=== PATIENT | female | born 1980 | race Caucasian/White ===

== ENCOUNTER → 2017-07-25 | Outpatient (CLI) | payer OTHER ==
[2017-07-25 09:32] LABS: BETA HCG QUANT 5871 MIU/ML (0-5)
== END ==
LOC: CLAB 08:11
PROVIDERS: ATTEND Obstetrics & Gynecology
DX: Z34.90 Encounter for supervision of normal pregnancy, unspecified, unspecified trimester (principal)
CPT/HCPCS: 36415; 84144; 84702

== ENCOUNTER → 2017-08-08 | Outpatient (CLI) | payer OTHER | LOC: CLAB 08:20 | PROVIDERS: ATTEND Obstetrics & Gynecology | DX: O02.1 Missed abortion (principal) | CPT/HCPCS: 36415; 86850; 86900; 86901 ==

== ENCOUNTER → 2017-08-21 | Outpatient (CLI) | payer OTHER ==
[2017-08-21 09:03] LABS: BETA HCG QUANT 13 MIU/ML (0-5)
== END ==
LOC: CLAB 08:10
PROVIDERS: ATTEND Obstetrics & Gynecology
DX: O02.1 Missed abortion (principal)
CPT/HCPCS: 36415; 84702

== ENCOUNTER → 2017-11-20 | Outpatient (CLI) | payer OTHER ==
[2017-11-20 09:08] LABS: AUTOMATED NEUTROPHIL # 3.6 TH/MM3 (1.8-7.7); BASOPHIL % 0.4 % (0.0-2.0); EOSINOPHIL % 0.7 % (0.0-4.0); HEMATOCRIT 34.3 % (35.0-46.0); HEMOGLOBIN 12.1 GM/DL (11.6-15.3); LYMPH % 30.5 % (9.0-44.0); LYMPHOCYTE # 1.7 TH/MM3 (1.0-4.8); MEAN CELL VOLUME 85.2 FL (80.0-100.0); MEAN CORPUSCULAR HEMOGLOBIN 30.1 PG (27.0-34.0); MEAN CORPUSCULAR HGB CONC 35.3 % (32.0-36.0); MEAN PLATELET VOLUME 7.3 FL (7.0-11.0); MONO % 5.9 % (0.0-8.0); MONOCYTE # 0.3 TH/MM3 (0-0.9); NEUT % 62.5 % (16.0-70.0); PLATELET COUNT 267 TH/MM3 (150-450); RED BLOOD COUNT 4.02 MIL/MM3 (4.00-5.30); RED CELL DISTRIBUTION WIDTH 13.3 % (11.6-17.2); WHITE BLOOD COUNT 5.7 TH/MM3 (4.0-11.0)
[2017-11-20 09:28] LABS: AMORPHOUS SEDIMENT, URINE RARE; BACTERIA, URINE FEW /hpf; BILIRUBIN, URINE NEG (NEG); BLOOD, URINE NEG (NEG); GLUCOSE,URINE NEG (NEG); KETONE, URINE TRACE mg/dL (NEG); MUCUS URINE FEW /lpf (OCC); NITRITE,URINE NEG (NEG); PH, URINE 7.5 (5.0-8.5); SQUAMOUS EPITHELIAL CELL URINE 1 /hpf (0-5); URINE COLOR YELLOW (YELLW/STRAW); URINE LEUKOCYTE ESTERASE LARGE (NEG)
[2017-11-20 09:34] LABS: SICKLE CELL SCREEN NEG (NEG)
[2017-11-20 11:01] LABS: HEPATITIS B SURFACE ANTIGEN NEGATIVE (NEGATIVE); HEPATITIS C AB IgG NEGATIVE (NEGATIVE)
[2017-11-22 07:53] LABS: VARICELLA ZOSTER AB IGM 0.24 (NEGATIVE)
== END ==
LOC: CLAB 08:21
PROVIDERS: ATTEND Obstetrics & Gynecology
DX: O23.40 Unspecified infection of urinary tract in pregnancy, unspecified trimester (principal); B95.1 Streptococcus, group B, as the cause of diseases classified elsewhere
CPT/HCPCS: 36415; 80307; 81001; 84443; 85025; 85660; 86403; 86592; 86703; 86762; 86787; 86803; 86850; 86900; 86901; 87086; 87340

== ENCOUNTER 2018-01-01 12:10 | Emergency (ER) | payer OTHER ==
[~2018-01-01] VITALS: Ht 160 cm; Wt 54.0 kg
[2018-01-01 12:19] VITALS: BP 113/69; PULSE 104; RESP 18; TEMP 97.8; O2SAT 100
[2018-01-01] MEDS ORDERED: CETI-1 (12:28)
[2018-01-01] MEDS ORDERED: PULM1SOL NEB (12:28)
[2018-01-01] MEDS ORDERED: FLUT1INH INH (12:28)
[2018-01-01] MEDS ORDERED: MONT10TA2 PO (12:28)
[2018-01-01] MEDS ORDERED: SODIUM CHLORIDE 0.9% FLUSH 10 ML FLUSH IVF PRN (12:30)
[2018-01-01] MEDS ORDERED: SODIUM CHLOR 0.9% 1000 ML INJ 1,000 ML IV ONE (12:30)
[2018-01-01 12:34] VITALS: O2SAT 99
[2018-01-01 12:48] LABS: BASOPHIL % 0.2 % (0.0-2.0); EOSINOPHIL # 0.1 TH/MM3 (0-0.4); LYMPH % 8.3 % (9.0-44.0); LYMPHOCYTE # 0.8 TH/MM3 (1.0-4.8); MEAN CELL VOLUME 85.8 FL (80.0-100.0); MEAN CORPUSCULAR HEMOGLOBIN 29.7 PG (27.0-34.0); MEAN CORPUSCULAR HGB CONC 34.6 % (32.0-36.0); MEAN PLATELET VOLUME 7.3 FL (7.0-11.0); MONO % 5.8 % (0.0-8.0); MONOCYTE # 0.6 TH/MM3 (0-0.9); NEUT % 84.7 % (16.0-70.0); PLATELET COUNT 174 TH/MM3 (150-450); RED BLOOD COUNT 3.03 MIL/MM3 (4.00-5.30); RED CELL DISTRIBUTION WIDTH 13.7 % (11.6-17.2); WHITE BLOOD COUNT 9.5 TH/MM3 (4.0-11.0)
[2018-01-01 13:00] LABS: PROTHROMBIN TIME - PATIENT 9.7 SEC (9.8-11.6)
[2018-01-01 13:11] LABS: BICARBONATE 19.7 MEQ/L (21.0-32.0); CALCIUM 7.2 MG/DL (8.5-10.1); CREATININE 0.94 MG/DL (0.50-1.00); MAGNESIUM 1.4 MG/DL (1.5-2.5)
[2018-01-01 13:27] LABS: CALCIUM-PROTEIN CORRECTED 7.8 MG/DL (8.5-10.1); TROPONIN I 0.02 NG/ML (0.02-0.05)
--- NOTE | 2018-01-01 13:28 | PD ---
HPI Chief Complaint: Cardiac Complaint Time Seen by Provider: 12:25 Travel History International Travel<30 days: No Contact w/Intl Traveler<30days: No Traveled to known affect area: No History of Present Illness HPI 37-year-old female was brought to the emergency room by EMS after she started having significant palpitations are getting vancomycin infusion. Patient has history of cystic fibrosis and was admitted in [facility] at [place]. She was recently discharged and was sent home on vancomycin via PICC line. Patient says that for her cystic fibrosis usually does not get vancomycin and this was new. She did have few doses of it prior to one today where she started getting this reaction. When EMS arrived they noticed that her heart rate was in 170s and the cardiac rehabilitation specialist showed SVT. Patient was given 6 mg of adenosine that brought the heart rate down to 1 teens. Patient denies of any chest pain. Her wic site coordinator is from [place] and her carpenter/labor is Dr. Mtz. No history of vaginal bleeding or cramps. Patient says that when she was admitted at [facility] she was seen by an ID specialist as well as a wic site coordinator there that was part of her wic site coordinator group. When patient was admitted in the hospital there she had 2 episodes of rapid heartbeat that was questioned to be V. tach and patient was seen by the brass wind instrument maker there. As per the patient the brass wind instrument maker ruled out V. tach. Patient is 14 weeks and she is A1 PFSH Past Medical History Narrative Medical List of her past medical, surgical, social and family history is reviewed from the nursing note. Medical other: Yes (CYSTIC FIBROSIS ) ?: LMP: 09/24/17 Past Surgical History Surgical History: No Previous Surgery Other Surgery: Yes (3 SINUS SURGERIES ) Social History Alcohol Use: No Tobacco Use: No Substance Use: No Allergies-Medications (Allergen,Severity, Reaction): Coded Allergies: No Known Allergies (Verified Allergy, Unknown, 01/01/18) Comments No known drug allergies. Reported Meds & Prescriptions Reported Meds & Active Scripts Active Reported Pulmozyme Neb (Dornase Aidan) 1 Mg/Ml Amp 2.5 Mg NEB DAILY Breo Ellipta Inh (Fluticasone/Vilanterol) 100-25 Mcg/Act Inh 1 Puff INH DAILY Use daily at the same time. Singulair (Montelukast Sodium) 10 Mg Tab 10 Mg PO HS Zyrtec (Cetirizine HCl) 10 Mg Tablet Narrative Medication List of her home medications reviewed from the nursing note. Review of Systems Except as stated in HPI: all other systems reviewed are Neg Cardiovascular: Positive: Palpitations Physical Exam Narrative GENERAL: Awake, alert, anxious SKIN: Focused skin assessment warm/dry. Pale HEAD: Atraumatic. Normocephalic. EYES: Pupils equal and round. No scleral icterus. No injection or drainage. ENT: No nasal bleeding or discharge. Mucous membranes pink and moist. NECK: Trachea midline. No JVD. CARDIOVASCULAR: Regular rate and rhythm. Tachycardia. No murmur appreciated. RESPIRATORY: No accessory muscle use. Clear to auscultation. Breath sounds equal bilaterally. GASTROINTESTINAL: Abdomen soft, non-tender, nondistended. Hepatic and splenic margins not palpable. MUSCULOSKELETAL: No obvious deformities. No clubbing. No cyanosis. No edema. NEUROLOGICAL: Awake and alert. No obvious cranial nerve deficits. Motor grossly within normal limits. Normal speech. PSYCHIATRIC: Appropriate mood and affect; insight and judgment normal. Data Data Last Documented VS Vital Signs Date Time Temp Pulse Resp B/P (MAP) Pulse Ox O2 Delivery O2 Flow Rate FiO2 01/01/18 12:34 99 Room Air 01/01/18 12:19 97.8 104 18 113/69 (84) Orders Orders Electrocardiogram (01/01/18 12:25) Basic Metabolic Panel (Bmp) (01/01/18 12:25) Ckmb (Isoenzyme) Profile (01/01/18 12:25) Complete Blood Count With Diff (01/01/18 12:25) Magnesium (Mg) (01/01/18 12:25) Prothrombin Time / Inr (Pt) (01/01/18 12:25) Troponin I (01/01/18 12:25) Ecg Monitoring (01/01/18 12:25) Bilateral Bp Monitoring (01/01/18 12:25) Iv Access Insert/Monitor (01/01/18 12:25) Oximetry (01/01/18 12:25) Oxygen Administration (01/01/18 12:25) Sodium Chloride 0.9% Flush (Ns Flush) (01/01/18 12:30) Sodium Chlor 0.9% 1000 Ml Inj (Ns 1000 M (01/01/18 12:30) Thyroid Stimulating Hormone (01/01/18 12:25) Type And Screen (01/01/18 12:54) Protein Corrected Calcium(Pcc) (01/01/18 12:36) Potassium Chloride (Kcl) (01/01/18 13:45) Calcium Gluconate Inj (Calcium Gluconate (01/01/18 13:45) Labs Laboratory Tests Test 01/01/18 12:36 White Blood Count 9.5 TH/MM3 Red Blood Count 3.03 MIL/MM3 Hemoglobin 9.0 GM/DL Hematocrit 26.0 % Mean Corpuscular Volume 85.8 FL Mean Corpuscular Hemoglobin 29.7 PG Mean Corpuscular Hemoglobin Concent 34.6 % Red Cell Distribution Width 13.7 % Platelet Count 174 TH/MM3 Mean Platelet Volume 7.3 FL Neutrophils (%) (Auto) 84.7 % Lymphocytes (%) (Auto) 8.3 % Monocytes (%) (Auto) 5.8 % Eosinophils (%) (Auto) 1.0 % Basophils (%) (Auto) 0.2 % Neutrophils # (Auto) 8.0 TH/MM3 Lymphocytes # (Auto) 0.8 TH/MM3 Monocytes # (Auto) 0.6 TH/MM3 Eosinophils # (Auto) 0.1 TH/MM3 Basophils # (Auto) 0.0 TH/MM3 CBC Comment DIFF FINAL Differential Comment Prothrombin Time 9.7 SEC Prothromb Time International Ratio 1.0 RATIO Blood Urea Nitrogen 9 MG/DL Creatinine 0.94 MG/DL Random Glucose 98 MG/DL Total Protein 6.0 GM/DL Calcium Level 7.2 MG/DL Magnesium Level 1.4 MG/DL Sodium Level 140 MEQ/L Potassium Level 3.1 MEQ/L Chloride Level 112 MEQ/L Carbon Dioxide Level 19.7 MEQ/L Anion Gap 8 MEQ/L Estimat Glomerular Filtration Rate 68 ML/MIN Protein Corrected Calcium 7.8 MG/DL Total Creatine Kinase 33 U/L Troponin I 0.02 NG/ML Thyroid Stimulating Hormone 3rd Gen 2.560 uIU/ML MDM Medical Decision Making Medical Screen Exam Complete: Yes Emergency Medical Condition: Yes Medical Record Reviewed: Yes Interpretation(s) Twelve-lead EKG was reviewed by me. Normal sinus rhythm, normal axis, nonspecific ST-T wave changes, tachycardia. Heart rate of 105 bpm. Differential Diagnosis SVT, electrolyte abnormality, infection Narrative Course 2:26 PM blood test results are back. Patient has normal white blood cell count but hemoglobin and hematocrit is low especially when compared to her last hemoglobin and hematocrit from one month ago. Chemistry is suggestive of hypokalemia and hypocalcemia. Patient was given 1 L of IV fluid bolus. I have ordered for potassium and calcium replacement. I discussed about this anemia with the patient and she said that when she was in [place] she was told that she was anemic as well. Patient denies any blood loss from anywhere. Her last OB visit was one month ago. I have tried to get records faxed over from [facility] at [place] but have been unsuccessful so far. I have put a call out for patient's pulmonology from the [facility] pulmonology group and waiting to hear back from them they can discuss a the blood test results and also the reason patient has to be an ankle myosin and says since she had a reaction the alternative to it. I have updated the patient and her mother regarding these findings and the next step. If I do not hear back from the pulmonologists I might have to admit this patient at this point. 2:47 PM I let the patient know that we have not had much success in acquiring her labs and discharge summary from [place] or speak with her wic site coordinator. My concern at this point is that she is supposed to be on 9 more days of vancomycin which as per the patient is because her sputum grew MRSA and says she started having the palpitations with it. With her I' m not comfortable discharging her and having her continue vancomycin. I would have to end up keeping her at least for observation. Hopefully the admitting team would have better luck getting these faxed paperwork from [place]. The other option is to continue giving her the vancomycin in a controlled setting in the hospital and see if she has PSVT once again. 3:43 PM I received a phone call from Dr. Stone who is an associate of Dr. Mas from the same pulmonology group. He told me that Dr. Mas was on vacation and he is covering him. In fact he took care of this patient when she was hospitalized at [place]. He knows the patient's case well. After listening to the history he wanted the patient to be transferred to [facility] since they specialize in taking care of cystic fibrosis patient. At this point the admission was canceled with the residents here. Arrangements for transfer was being made. The transfer center of her hospital informed us that the pulmonologists spoke with the hospitalist Dr. Almaguer and I did not have to talk to him. Dr. Almaguer will be the accepting physician. I have informed of all this to the patient. Awaiting for a bed assignment at the [facility] and ambulance to take the patient over there. Procedures EKG Prior to Arrival: No Physician Communication Physician Communication Dr. Stone Diagnosis Primary Impression: SVT (supraventricular tachycardia) Additional Impressions: possible allergic reaction Hypokalemia Hypocalcemia Anemia Qualified Codes: D64.9 - Anemia, unspecified Disposition: 70 TRANSFER TO OTHER FACILITY Kyler Hannah MD Jan 01, 2018 13:28
[2018-01-01] MEDS ORDERED: POTASSIUM CHLORIDE 20 MEQ CONTROLLED RELEASE TAB PO ONE (13:45)
[2018-01-01] MEDS ORDERED: CALCIUM GLUCONATE INJ 1 GM in DEXTROSE 5% IN WATER 100ML INJ 100 ML IV ONE ×2 (13:45)
[2018-01-01 15:44] VITALS: BP 127/68; PULSE 110; RESP 18; O2SAT 99
[2018-01-01] MEDS ORDERED: MAGNESIUM SULFATE 1 GM PREMIX 100 ML IV ONE (19:30)
--- NOTE | 2018-01-02 12:18 | EKG ---
Date Performed: 01/01/2018 Time Performed: 12:22:51 PTAGE: 37 years EKG: SINUS TACHYCARDIA ABNORMAL RHYTHM ECG NO PREVIOUS TRACING DOCTOR: Diomedes Verdin Interpretating Date/Time 01/02/2018 12:16:01
== END 2018-01-01 19:49 | disposition short-term general hospital (02) ==
LOC: NEPC 12:10 → NEDA 14:47 → UNDOADMOB 14:47 → NEPC 19:49
DX: O99.412 Diseases of the circulatory system complicating pregnancy, second trimester (principal); I47.1 Supraventricular tachycardia; O99.282 Endocrine, nutritional and metabolic diseases complicating pregnancy, second trimester; E87.6 Hypokalemia; E83.51 Hypocalcemia; E84.9 Cystic fibrosis, unspecified; O99.012 Anemia complicating pregnancy, second trimester; D64.9 Anemia, unspecified; Z3A.14 14 weeks gestation of pregnancy
CPT/HCPCS: 80048; 82550; 83735; 84155; 84443; 84484; 85025; 85610; 86850; 86900; 86901; 93005; 96361; 96374; 99285; J0610; J7030

== ENCOUNTER → 2018-01-29 | Outpatient (CLI) | payer OTHER ==
[~2018-01-29] MED LIST: CETI-1; FLUT1INH INH; MONT10TA2 PO; PULM1SOL NEB
== END ==
LOC: HPND 08:32
PROVIDERS: ATTEND Obstetrics & Gynecology
DX: O09.522 Supervision of elderly multigravida, second trimester (principal); O30.042 Twin pregnancy, dichorionic/diamniotic, second trimester; O99.89 Other specified diseases and conditions complicating pregnancy, childbirth and the puerperium
CPT/HCPCS: 76811; 76812; 76817

== ENCOUNTER → 2018-02-12 | Outpatient (CLI) | payer OTHER | LOC: HPND 11:03 | PROVIDERS: ATTEND Obstetrics & Gynecology | DX: O09.522 Supervision of elderly multigravida, second trimester (principal); O26.892 Other specified pregnancy related conditions, second trimester; O30.042 Twin pregnancy, dichorionic/diamniotic, second trimester | CPT/HCPCS: 76815; 76817 ==

== ENCOUNTER → 2018-02-17 | Outpatient (CLI) | payer OTHER ==
[2018-02-17 11:55] LABS: AUTOMATED NEUTROPHIL # 6.6 TH/MM3 (1.8-7.7); BASOPHIL % 0.3 % (0.0-2.0); EOSINOPHIL # 0.1 TH/MM3 (0-0.4); EOSINOPHIL % 1.3 % (0.0-4.0); HEMATOCRIT 30.1 % (35.0-46.0); HEMOGLOBIN 10.3 GM/DL (11.6-15.3); LYMPH % 18.2 % (9.0-44.0); LYMPHOCYTE # 1.6 TH/MM3 (1.0-4.8); MEAN CELL VOLUME 90.5 FL (80.0-100.0); MEAN CORPUSCULAR HGB CONC 34.2 % (32.0-36.0); MEAN PLATELET VOLUME 7.3 FL (7.0-11.0); MONO % 5.6 % (0.0-8.0); MONOCYTE # 0.5 TH/MM3 (0-0.9); NEUT % 74.6 % (16.0-70.0); PLATELET COUNT 223 TH/MM3 (150-450); RED BLOOD COUNT 3.32 MIL/MM3 (4.00-5.30); RED CELL DISTRIBUTION WIDTH 15.4 % (11.6-17.2); WHITE BLOOD COUNT 8.9 TH/MM3 (4.0-11.0)
[2018-02-17 12:35] LABS: ALBUMIN 2.9 GM/DL (3.4-5.0); AST (GOT) 13 U/L (15-37); BICARBONATE 24.2 MEQ/L (21.0-32.0); BLOOD UREA NITROGEN 8 MG/DL (7-18); CALCIUM 9.1 MG/DL (8.5-10.1); CHLORIDE 108 MEQ/L (98-107); CREATININE 0.75 MG/DL (0.50-1.00); GLOMERULAR FILTRATION RATE 88 ML/MIN (>89); GLUCOSE,RANDOM 74 MG/DL (74-106); SODIUM (NA) 140 MEQ/L (136-145)
[2018-02-17 12:36] LABS: ALT (GPT) 15 U/L (10-53)
[2018-02-17 12:38] LABS: ALKALINE PHOSPHATASE 52 U/L (45-117); TOTAL BILIRUBIN ADULT 0.2 MG/DL (0.2-1.0); TOTAL PROTEIN 6.9 GM/DL (6.4-8.2)
== END ==
LOC: ELAB 10:30
DX: O25.10 Malnutrition in pregnancy, unspecified trimester (principal); E84.9 Cystic fibrosis, unspecified
CPT/HCPCS: 36415; 80053; 85025

== ENCOUNTER → 2018-02-26 | Outpatient (CLI) | payer OTHER | LOC: HPND 11:20 | PROVIDERS: ATTEND Obstetrics & Gynecology | DX: O09.522 Supervision of elderly multigravida, second trimester (principal); O30.042 Twin pregnancy, dichorionic/diamniotic, second trimester; O34.32 Maternal care for cervical incompetence, second trimester; O34.42 Maternal care for other abnormalities of cervix, second trimester; O26.872 Cervical shortening, second trimester | CPT/HCPCS: 76816; 76817 ==

== ENCOUNTER → 2018-03-12 | Outpatient (CLI) | payer OTHER | LOC: CLAB 07:25 | PROVIDERS: ATTEND Obstetrics & Gynecology | DX: Z34.90 Encounter for supervision of normal pregnancy, unspecified, unspecified trimester (principal) | CPT/HCPCS: 36415; 82951 ==

== ENCOUNTER → 2018-03-19 | Outpatient (CLI) | payer OTHER | LOC: HPND 08:59 | PROVIDERS: ATTEND Obstetrics & Gynecology | DX: O09.522 Supervision of elderly multigravida, second trimester (principal); O30.042 Twin pregnancy, dichorionic/diamniotic, second trimester; O34.42 Maternal care for other abnormalities of cervix, second trimester | CPT/HCPCS: 76816 ==

== ENCOUNTER → 2018-03-26 | Outpatient (CLI) | payer OTHER ==
[2018-03-26 08:24] LABS: HEMATOCRIT 32.1 % (35.0-46.0); HEMOGLOBIN 10.8 GM/DL (11.6-15.3)
== END ==
LOC: CLAB 07:58
PROVIDERS: ATTEND Obstetrics & Gynecology
DX: Z34.90 Encounter for supervision of normal pregnancy, unspecified, unspecified trimester (principal)
CPT/HCPCS: 36415; 80307; 82951; 82952; 85014; 85018; 87340; 87389; G0475

== ENCOUNTER 2018-06-04 06:50 | Inpatient (IN) ==
[2018-06-04 07:28] LABS: Baso # (Auto) 0.1 th/mm3 (0.0-0.2); Baso % (Auto) 0.5 % (0.0-2.0); Eos # (Auto) 0.2 th/mm3 (0.0-0.4); Eos % (Auto) 1.7 % (0.0-4.0); Hematocrit 39.3 % (35.0-46.0); Hemoglobin 13.4 gm/dL (11.6-15.3); Lymph # (Auto) 3.6 th/mm3 (1.0-4.8); Lymph % (Auto) 27.1 % (9.0-44.0); Mean Corpuscular Hemoglobin 31.1 pg (27.0-34.0); Mean Corpuscular Volume 91.4 fL (80.0-100.0); Mean Platelet Volume 8.5 fL (7.0-11.0); Mono # (Auto) 0.8 th/mm3 (0.0-0.9); Mono % (Auto) 6.1 % (0.0-8.0); Neut # (Auto) 8.6 th/mm3 (1.8-7.7); Neut % (Auto) 64.6 % (16.0-70.0); Platelet Count 202 th/mm3 (150-450); Red Cell Distribution Width 13.6 % (11.6-17.2); White Blood Count 13.4 th/mm3 (4.0-11.0)
[2018-06-04 08:00] LABS: Eosinophils 2 % (0-4); Lymphocytes 29 % (9-44); Metamyelocytes 2 % (0-1); Monocytes 2 % (0-8); Platelet Estimate Normal (Normal); Platelet Morphology Normal (Normal); RBC Morphology Normal (Normal)
[2018-06-04 08:01] LABS: Amphetamine Screen,Urine Neg (Neg); Barbiturate Screen,Urine Neg (Neg); Cannabinoid Screen,Urine Neg (Neg); Cocaine Screen,Urine Neg (Neg)
[2018-06-04 08:05] LABS: Bacteria,Urine Rare /hpf; Bilirubin,Urine Negative (Negative); Clarity,Urine Cloudy (Clear); Color,Urine Yellow (Yellw/Straw); Glucose,Urine (UA) Negative (Negative); Leukocyte Esterase,Urine Moderate (Negative); Mucus,Urine Few /lpf (Occasional); Nitrite,Urine Negative (Negative); Specific Gravity,Urine 1.014 (1.002-1.035); Squamous Epithelial Cell,Urine 20 /hpf (0-5)
[2018-06-04 08:07] LABS: Opiate Screen,Urine Neg (Neg)
[2018-06-04] MEDS ORDERED: Citric Acid/Sodium Citrate Liq 30 ML UDC PO SCH (08:15)
[2018-06-04] MEDS ORDERED: Morphine Sulfate PF Inj 5 MG/10 ML Ampul ONE (08:17)
[2018-06-04] MEDS ORDERED: ceFAZolin 2 GM Premix Inj 2 GM/100 ML BAG IV.SIG SCH (09:00)
[2018-06-04] MEDS ORDERED: ceFAZolin Inj 2,000 MG in Sodium Chlor 0.9% Inj 100 ML IV.SIG SCH (09:00)
[2018-06-04] MEDS ORDERED: Oxytocin 30 Units/500ml Premix 30 UNITS/500 ML BAG IV.SIG ONE (11:59)
--- NOTE | 2018-06-04 11:59 | P.OBDELI ---
Procedure Note Performed by: Yemi Mtz MD Procedure: Primary Low Transverse Section (Di-Di twins with IUGR 36 6/ 7 weeks) Indication for Delivery: Other (IUGR) Informed Consent Obtained: For anesthesia, For procedure Confirmed Correct: Patient, Procedure, Site, Time-out taken Anesthesia: Spinal Medication Prior to Procedure: As documented in eMAR Monitoring During Procedure: Blood pressure monitoring, court recording monitor, doppler, Pulse oximetry Urinary Catheter: Inserted using sterile technique, To dependent drainage Sterile Preparation: Duraprep, In usual fashion Position: Supine with wedge to right side, Supine with safety belt applied - Operative Features Skin Incision: Pfannenstiel Uterine Incision: Low transverse w/knife / scissors Membranes Ruptured: Artificially, Appearance of fluid (clear for A and B) Presentation: Occiput anterior (Twin B), Breech (twin a) Status of : Viable, Cord blood, Umbilical cord, Nursery present Placenta Delivered: Intact, Sent to pathology Medications: Antibiotics, Oxytocin Estimated blood loss (mL): 700 Procedure Tolerated: Well Maternal Condition: Stable Baby Complications: Other (baby b low weight, 1960 gm) Baby Condition: Stable Female A Delivery Date: 06/04/18 Weight: 2330 kg score (1 min): 8 score (5 min): 9 Female B Delivery Date: 06/04/18 Weight: 1960 kg score (1 min): 9 score (5 min): 9
--- NOTE | 2018-06-04 12:55 | MP ---
cc: Yemi Mtz MD DATE OF OPERATION: 06/04/2018 PREOPERATIVE DIAGNOSES: 1. Twin intrauterine gestation, di/di placentation with intrauterine growth restriction of both twin A and B. 2. Maternal history of cystic fibrosis. 3. Breech presentation of twin A. PROCEDURE PERFORMED: Primary low transverse section delivery of twin females. POSTOPERATIVE DIAGNOSES: 1. Twin intrauterine gestation, di/di placentation with intrauterine growth restriction of both twin A and B. 2. Maternal history of cystic fibrosis. 3. Breech presentation of twin A. SURGEON: Yemi Mtz MD. ANESTHESIA: Spinal. ESTIMATED BLOOD LOSS: 700 mL. DRAINS: Lee to gravity. OPERATIVE FINDINGS: Twin A delivered by breech extraction with Apgars of 8 at 1 minute and 9 at 5. Baby weighed 2330 kilograms. Baby B was vertex. Apgars were 9 at 1 minute and 9 at 5. Baby weighed 1960 kilograms. Clear fluid noted for both. Both placentas were intact and sent for pathologic review. INDICATIONS FOR PROCEDURE: The patient with chronic history of cystic fibrosis and during the course intrauterine growth restriction was identified with both twins. Baby A was larger, baby B was significantly smaller, falling below the third percentile. Baby A was approximately the fourth percentile for growth. PROCEDURE DESCRIPTION: The patient received Ancef 2 grams. She underwent spinal anesthetic with good results. She had a Lee inserted by sterile technique and she had sequentials placed on the lower extremities for VTE prophylaxis. She was prepped and draped. Timeout was conducted, agreed with all present in the room. The patient had excellent pain control. Pfannenstiel incision was utilized. The NICU staff was present. The incision was carried through the skin down through the subcutaneous layers identifying the fascia and then scoring it laterally, dissecting it away from the rectus muscle, the rectus muscle in the midline, opening the peritoneum sharply, and then placing a bladder blade over the pubic symphysis. Transverse incision was made in the lower uterine segment. Clear fluid was noted for twin A. Twin A was extracted by breech extraction. Baby was delivered without complication. Good tone and cry were noted. Cord was clamped with a curved Dottie and then the baby was passed off the operative field to the NICU staff. Delayed cord clamping was approximately 20 seconds. Baby B was palpated. The vertex was brought down into the lower uterine segment. The amniotic sac was opened sharply with clear fluid and then the was delivered in vertex left occiput posterior position. Good tone and cry were noted. Delayed cord clamping was documented for 46 seconds and the cord was clamped with straight Bisi clamp. The infant was taken to isolette with good tone and cry. Cord samples obtained appropriately for A and B and then the placenta was removed intact and sent to pathology for review. The uterus was explored. No retained tissue. The uterus was then closed with a double layer, first was running locking suture of 0 Monocryl, followed by a second imbricating suture of 0 Monocryl. Integrity incision was tested. There was good hemostasis. No hematoma. All free blood and clot was removed after irrigating the pelvis with copious normal saline. Confirmation of hemostasis again was documented before closure of the perineum. Full count was correct. Muscle belly was reapproximated loosely with interrupted mattress suture of 2-0 Monocryl. The fascia was then closed with 0 Vicryl in a simple running fashion and then the fat subcutaneous layer was closed with a running suture of 2-0 Monocryl. The skin was closed with a subcuticular stitch of #1 Stratafix with good result. Steri-Strips were applied and a dressing was applied over the incision. Final count was correct. The patient was stable. Twin A was in the regular nursery and twin B was sent to the NICU per protocol, below 2000 kilograms. At the completion of the case, the patient was stable. She was taken to the recovery room in room air. Yemi Mtz MD SJJose Antonio/ts , 12:10 PM , 12:20 PM
[2018-06-04] MEDS ORDERED: Naloxone Inj 0.4 MG/ML Vial IV.PUSH PRN (13:54)
[2018-06-04] MEDS ORDERED: Phenylephrine/NS 1000 MCG/10ML Syringe IV.PUSH ONE (14:49)
[2018-06-04] MEDS ORDERED: Oxytocin 30 Units/500ml Premix 30 UNITS/500 ML BAG IV.SIG PRN (16:59)
[2018-06-05 07:50] LABS: Hematocrit 38.3 % (35.0-46.0); Mean Corpuscular HGB Conc 33.9 % (32.0-36.0); Mean Corpuscular Volume 91.6 fL (80.0-100.0); Mean Platelet Volume 8.2 fL (7.0-11.0); Platelet Count 242 th/mm3 (150-450); Red Blood Count 4.18 mil/mm3 (4.00-5.30); Red Cell Distribution Width 13.9 % (11.6-17.2); White Blood Count 21.4 th/mm3 (4.0-11.0)
[2018-06-05] MEDS ORDERED: Zolpidem Tartrate 5 MG Tablet PO PRN (08:10)
[2018-06-05] MEDS ORDERED: Bisacodyl 10 MG Supp RECTAL PRN (08:10)
[2018-06-05] MEDS ORDERED: Naloxone Inj 0.4 MG/ML Vial IV.PUSH PRN (08:10)
[2018-06-05] MEDS ORDERED: Witch Hazel 50%/Glyderin 12.5% 40 Pad Jar RECTAL PRN (08:10)
[2018-06-05] MEDS ORDERED: Acetaminophen 325 MG Tablet PO PRN (08:10)
--- NOTE | 2018-06-05 08:10 | P.PNOB ---
Subjective Post op day: 1 Interval history: Doing well, pain controlled, ambulating without difficulty, voiding spontaneously, tolerating a regular diet Objective Vital Signs/I&O: Vital Signs 06/04/18 11:55 06/04/18 12:04 06/04/18 12:15 Temperature 98.0 F Pulse Rate 70 69 Respiratory Rate 17 18 Blood Pressure 112/57 L 100/60 114/62 06/04/18 12:22 06/04/18 12:30 06/04/18 12:31 Temperature Pulse Rate 68 107 H Respiratory Rate 17 20 Blood Pressure 109/63 06/04/18 12:51 06/04/18 12:54 06/04/18 13:31 Temperature 97.8 F 97.9 F Pulse Rate 60 64 Respiratory Rate 15 16 Blood Pressure 103/66 103/72 06/04/18 19:55 06/04/18 21:56 06/05/18 00:00 Temperature 98.3 F 98.6 F Pulse Rate 74 70 Respiratory Rate 16 18 18 Blood Pressure 105/68 104/61 06/05/18 04:00 Temperature 98.6 F Pulse Rate 70 Respiratory Rate 18 Blood Pressure 104/61 Intake & Output 06/04/18 06/05/18 06/05/18 18:59 06:59 18:59 Intake Total 100 / 100 Balance 100 / 100 Weight 71.668 kg Intake: IV 100 / 100 Ofirmev Inj 1,000 mg In 100 ml 100 / 100 @ 400 mls/hr IV.SIG Q8H [facility] Rx# :[id number] Result Diagrams: 06/05/18 07:37 Objective Remarks: GENERAL: Well-nourished, well-developed patient. CARDIOVASCULAR: Regular rate and rhythm without murmurs, gallops, or rubs. RESPIRATORY: Breath sounds equal bilaterally. No accessory muscle use. ABDOMEN/GI: Abdomen soft, non-tender, bowel sounds present. Dressing clean, dry and intact. Fundus: Firm, non-tender at umbilicus. GENITOURINARY: Light to moderate bleeding. EXTREMITIES: No cyanosis or edema, non-tender, without signs of DVT. Medications and IVs: Active Medications Citric Acid/Sodium Citrate (Sodium Citrate/Citric Acid Liq) 30 ml PO TOOL PROGRAMMER [facility] Stop: 06/08/18 08:14 Diphenhydramine HCl (Benadryl) 50 mg PO Q6H PRN PRN Reason: MILD TO MODERATE ITCHING Stop: 06/05/18 13:53 Diphenhydramine HCl (Benadryl Inj) 25 mg IV.PUSH Q6H PRN PRN Reason: MILD TO MODERATE ITCHING Stop: 06/05/18 13:53 Diphtheria/Pertussis/Tetanus Vacc (Boostrix Vaccine Inj) 0.5 ml IM .ONCE ONE Stop: 06/05/18 16:01 Lactated Ringer's (Lr 1000 Ml Inj) 1,000 mls @ 150 mls/hr IV.CONT .Q6H40M [facility] Last Admin: 06/05/18 08:00 Dose: Not Given Lactated Ringer's (Lr 1000 Ml Inj) 1,000 mls @ 100 mls/hr IV.CONT .Q10H [facility] Stop: 06/05/18 12:58 Last Admin: 06/05/18 08:00 Dose: Not Given Oxytocin (Pitocin 30 Units/Ns 500 Ml Premix) 30 units in 500 mls @ 100 mls/hr IV.SIG UNSCH PRN PRN Reason: Heavy bleeding Measles/Mumps/Rubella Vaccine Live (M-M-R Ii Vaccine Inj) 0.5 ml SQ .ONCE ONE Stop: 06/05/18 16:01 Miscellaneous Information ([facility] Nursing Information) 1 each OTHER UNSCH PRN PRN Reason: SEE LABEL COMMENTS Stop: 06/05/18 13:53 Miscellaneous Information ([facility] Nursing Information) 1 each OTHER UNSCH PRN PRN Reason: SEE LABEL COMMENTS Stop: 06/05/18 13:53 Montelukast Sodium (Singulair Chewable) 4 mg CHEW ONCE [facility] Naloxone HCl (Narcan Inj) 0.4 mg IV.PUSH UNSCH PRN PRN Reason: SEE LABEL COMMENTS Stop: 06/05/18 13:53 Oxycodone/Acetaminophen (Percocet 5/325 Mg) 2 tab PO Q4H PRN PRN Reason: PAIN SCALE 6 TO 10 Oxycodone/Acetaminophen (Percocet 5/325 Mg) 1 tab PO Q4H PRN PRN Reason: PAIN SCALE 3 TO 5 Sodium Chloride (Ns Flush) 2 ml IV.FLUSH BID [facility] Last Admin: 06/05/18 08:00 Dose: Not Given Sodium Chloride (Ns Flush) 2 ml IV.FLUSH PRN PRN PRN Reason: FLUSH AFTER USING IV ACCESS Assessment and Plan - Plan 38-year-old status post 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 1. Postoperative day #1: Afebrile, vital signs stable, and hemoglobin pending, continue routine post and postoperative care, encouraged more ambulation , will add Motrin for pain control. Anticipate discharge home in the next 48 hours. - new born females -Queried PDMP and reviewed report 2. Cystic fibrosis: Pulmonary status good at baseline, encouraged ambulation. 3. Reflux urine culture: We will follow-up on results
[2018-06-05] MEDS: Senna/Docusate Sodium 8.6/50 MG Tablet PO SCH (09:17)
[2018-06-05] MEDS ORDERED: Measles/Mumps/Rubella Vaccine Inj 0.5 ML Vial SQ ONE (16:00)
[2018-06-05] MEDS ORDERED: Diphtheria/Tetanus/Pertussis Vaccine Inj 0.5 ML Syringe IM ONE (16:00)
[2018-06-06] MEDS: Ibuprofen 400 MG Tablet PO PRN ×2 (03:35→17:24)
[2018-06-06] MEDS: Senna/Docusate Sodium 8.6/50 MG Tablet PO SCH ×3 (07:48→21:25)
--- NOTE | 2018-06-06 08:04 | P.PNOB ---
Subjective Post op day: 2 Interval history: Feeling ok, pain well controlled when she takes medication. Babies have passed car seat test Objective Vital Signs/I&O: Vital Signs 06/05/18 08:15 06/05/18 19:44 Temperature 98.7 F 98.5 F Pulse Rate 72 75 Respiratory Rate 14 18 Blood Pressure 110/66 109/62 Result Diagrams: 06/05/18 07:37 Objective Remarks: GENERAL: Well-nourished, well-developed patient. CARDIOVASCULAR: Regular rate and rhythm without murmurs, gallops, or rubs. RESPIRATORY: Breath sounds equal bilaterally. No accessory muscle use. ABDOMEN/GI: Abdomen soft, non-tender, bowel sounds present. Incision: Clean, dry and intact. Fundus: Firm, non-tender at umbilicus. GENITOURINARY: Light to moderate bleeding. EXTREMITIES: No cyanosis or edema, non-tender, without signs of DVT. Medications and IVs: Active Medications Acetaminophen (Tylenol) 650 mg PO Q4H PRN PRN Reason: PAIN SCALE 1 TO 2 Al Hydroxide/Mg Hydroxide (Milk Of Magnesia Liq) 30 ml PO Q12H PRN PRN Reason: Mild Constipation Bisacodyl (Dulcolax Supp) 10 mg RECTAL DAILY PRN PRN Reason: SEVERE CONSITIPATION Citric Acid/Sodium Citrate (Sodium Citrate/Citric Acid Liq) 30 ml PO NURSE RN BSN [facility] Stop: 06/08/18 08:14 Lactated Ringer's (Lr 1000 Ml Inj) 1,000 mls @ 150 mls/hr IV.CONT .Q6H40M [facility] Last Admin: 06/06/18 07:09 Dose: Not Given Oxytocin (Pitocin 30 Units/Ns 500 Ml Premix) 30 units in 500 mls @ 100 mls/hr IV.SIG UNSCH PRN PRN Reason: Heavy bleeding Ibuprofen (Motrin) 800 mg PO Q8H PRN PRN Reason: For Cramping Last Admin: 06/06/18 03:35 Dose: 800 mg Lactulose (Lactulose Liq) 30 ml PO DAILY PRN PRN Reason: SEVERE CONSITIPATION Montelukast Sodium (Singulair Chewable) 4 mg CHEW ONCE [facility] Naloxone HCl (Narcan Inj) 0.1 mg IV.PUSH Q2M PRN PRN Reason: for opiate reversal Ondansetron HCl (Zofran Odt) 4 mg PO Q6H PRN PRN Reason: NAUSEA OR VOMITING Oxycodone/Acetaminophen (Percocet 5/325 Mg) 2 tab PO Q4H PRN PRN Reason: PAIN SCALE 6 TO 10 Oxycodone/Acetaminophen (Percocet 5/325 Mg) 1 tab PO Q4H PRN PRN Reason: PAIN SCALE 3 TO 5 Senna/Docusate Sodium (Lilo-Colace) 1 tab PO BID [facility] Last Admin: 06/06/18 07:48 Dose: Not Given Sennosides (Senokot) 17.2 mg PO Q12H PRN PRN Reason: Moderate Constipation Sodium Chloride (Ns Flush) 2 ml IV.FLUSH BID [facility] Last Admin: 06/06/18 07:08 Dose: Not Given Sodium Chloride (Ns Flush) 2 ml IV.FLUSH PRN PRN PRN Reason: FLUSH AFTER USING IV ACCESS Witch Jackelyn/Glycerin (Tucks Pads) 1 applicatio RECTAL QID PRN PRN Reason: HEMORRHOIDS Zolpidem Tartrate (Ambien) 5 mg PO HS PRN PRN Reason: SLEEP Assessment and Plan - Plan 38-year-old status post 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 1. Postoperative day #2: Afebrile, vital signs stable, and hemoglobin stable, continue routine post and postoperative care, encouraged more ambulation , has Motrin for pain control and percocet. Anticipate discharge home in the next 48 hours. - new born females -Queried PDMP and reviewed report 2. Cystic fibrosis: Pulmonary status good at baseline, encouraged ambulation. 3. Reflux urine culture: mixed
[2018-06-06 08:34] VITALS: PULSE 71
[2018-06-06 20:24] VITALS: BP 109/76; RESP 18; TEMP 98.5
[2018-06-07] MEDS: Ibuprofen 400 MG Tablet PO PRN (02:41)
--- NOTE | 2018-06-07 08:37 | P.PNOB ---
Subjective Post op day: 3 Interval history: doing well, pain well controlled. ambulating nyla po. Feeling tired as trying to figure out feeding pattern for babies. Objective Vital Signs/I&O: Vital Signs 06/06/18 20:00 Temperature 98.5 F Pulse Rate 71 Respiratory Rate 18 Blood Pressure 109/76 Result Diagrams: 06/05/18 07:37 Objective Remarks: GENERAL: Well-nourished, well-developed patient. CARDIOVASCULAR: Regular rate and rhythm without murmurs, gallops, or rubs. RESPIRATORY: Breath sounds equal bilaterally. No accessory muscle use. ABDOMEN/GI: Abdomen soft, non-tender, bowel sounds present. Incision: Clean, dry and intact. Fundus: Firm, non-tender at umbilicus. GENITOURINARY: Light to moderate bleeding. EXTREMITIES: No cyanosis or edema, non-tender, without signs of DVT. Medications and IVs: Active Medications Acetaminophen (Tylenol) 650 mg PO Q4H PRN PRN Reason: PAIN SCALE 1 TO 2 Al Hydroxide/Mg Hydroxide (Milk Of Magnesia Liq) 30 ml PO Q12H PRN PRN Reason: Mild Constipation Bisacodyl (Dulcolax Supp) 10 mg RECTAL DAILY PRN PRN Reason: SEVERE CONSITIPATION Citric Acid/Sodium Citrate (Sodium Citrate/Citric Acid Liq) 30 ml PO NEUROLOGY TECH [facility] Stop: 06/08/18 08:14 Lactated Ringer's (Lr 1000 Ml Inj) 1,000 mls @ 150 mls/hr IV.CONT .Q6H40M [facility] Last Admin: 06/07/18 07:44 Dose: Not Given Oxytocin (Pitocin 30 Units/Ns 500 Ml Premix) 30 units in 500 mls @ 100 mls/hr IV.SIG UNSCH PRN PRN Reason: Heavy bleeding Ibuprofen (Motrin) 800 mg PO Q8H PRN PRN Reason: For Cramping Last Admin: 06/07/18 02:41 Dose: 800 mg Lactulose (Lactulose Liq) 30 ml PO DAILY PRN PRN Reason: SEVERE CONSITIPATION Montelukast Sodium (Singulair Chewable) 4 mg CHEW ONCE [facility] Naloxone HCl (Narcan Inj) 0.1 mg IV.PUSH Q2M PRN PRN Reason: for opiate reversal Ondansetron HCl (Zofran Odt) 4 mg PO Q6H PRN PRN Reason: NAUSEA OR VOMITING Oxycodone/Acetaminophen (Percocet 5/325 Mg) 2 tab PO Q4H PRN PRN Reason: PAIN SCALE 6 TO 10 Oxycodone/Acetaminophen (Percocet 5/325 Mg) 1 tab PO Q4H PRN PRN Reason: PAIN SCALE 3 TO 5 Last Admin: 06/07/18 07:05 Dose: 1 tab Senna/Docusate Sodium (Lilo-Colace) 1 tab PO BID [facility] Last Admin: 06/06/18 21:25 Dose: 1 tab Sennosides (Senokot) 17.2 mg PO Q12H PRN PRN Reason: Moderate Constipation Sodium Chloride (Ns Flush) 2 ml IV.FLUSH BID [facility] Last Admin: 06/06/18 21:25 Dose: Not Given Sodium Chloride (Ns Flush) 2 ml IV.FLUSH PRN PRN PRN Reason: FLUSH AFTER USING IV ACCESS Witch Jackelyn/Glycerin (Tucks Pads) 1 applicatio RECTAL QID PRN PRN Reason: HEMORRHOIDS Zolpidem Tartrate (Ambien) 5 mg PO HS PRN PRN Reason: SLEEP Assessment and Plan - Plan 38-year-old status post 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 1. Postoperative day #3: Afebrile, vital signs stable, and hemoglobin stable, continue routine post and postoperative care, discharge today - new born females -Queried PDMP and reviewed report 2. Cystic fibrosis: Pulmonary status good at baseline, encouraged ambulation. 3. Reflux urine culture: mixed
[2018-06-07] MEDS: Senna/Docusate Sodium 8.6/50 MG Tablet PO SCH (10:35)
== END 2018-06-07 14:50 | disposition home or self-care (01) ==
LOC: H2E 06:50 → H1EA 13:16
PROVIDERS: ADMIT Obstetrics & Gynecology; ATTEND Obstetrics & Gynecology